=== PATIENT | male | born 1945 | race Caucasian/White ===

== ENCOUNTER 2016-09-25 13:14 | Emergency (ER) | payer BC ==
[2016-09-25 13:19] VITALS: RESP 18; O2SAT 99
--- NOTE | 2016-09-25 13:51 | ED PDOC ---
HPI: General Adult Time Seen by Provider: 09/25/16 13:33 Chief Complaint (Nursing): Weakness/Neurological Deficit Chief Complaint (Provider): generalized weakness History Per: Patient History/Exam Limitations: no limitations Onset/Duration Of Symptoms: Days (x 2) Additional Complaint(s): Kahlil Billingsley is a 70 year old male, with a previous medical history of diabetes, who presents to the ED with complaints of generalized weakness. Patient denies any chest pain, shortness of breath, headache, visual changes, focal weakness, paresthesias, fevers or chills. PMD: Dr. Back Past Medical History Reviewed: Historical Data, Nursing Documentation, Vital Signs Vital Signs: Last Vital Signs Temp 98 F 09/25/16 17:08 Pulse 64 09/25/16 17:08 Resp 18 09/25/16 17:08 BP 135/71 09/25/16 17:08 Pulse Ox 99 09/25/16 17:08 - Medical History PMH: Diabetes Denies: Atrial Fibrillation, CAD, Cardia Arrhythmia, CHF, HIV, HTN, Hypercholesterolemia, Mitral Valve Prolapse, Peripheral Edema - Surgical History Surgical History: Denies: Pacemaker - Family History Family History: States: Unknown Family Hx - Immunization History Hx Tetanus Toxoid Vaccination: No Hx Influenza Vaccination: No Hx Pneumococcal Vaccination: No - Home Medications Home Medications: Ambulatory Orders Medication Instructions Recorded Onglyza 5 mg PO DAILY 05/21/13 Ciprofloxacin HCl [Cipro] 500 mg PO BID #10 tab 05/19/14 Metronidazole [Flagyl] 500 mg PO Q8H #15 tab 05/19/14 Ondansetron HCl [Zofran] 4 mg PO Q8H PRN #0 ml 05/19/14 oxyCODONE/Acetaminophen [Percocet 1 ea PO Q4 PRN #0 tab 05/19/14 5/325 mg Tab] - Allergies Allergies/Adverse Reactions: Allergies Allergy/AdvReac Type Severity Reaction Status Date / Time Penicillins Allergy RASH Verified 09/25/16 13:44 Review of Systems ROS Statement: Except As Marked, All Systems Reviewed And Found Negative Constitutional: Positive for: Weakness (generalized ). Negative for: Fever, Chills Cardiovascular: Negative for: Chest Pain Respiratory: Negative for: Cough, Shortness of Breath Neurological: Negative for: Headache, Other (focal weakness) Physical Exam - Reviewed Nursing Documentation Reviewed: Yes Vital Signs Reviewed: Yes - Physical Exam Appears: Positive for: Well, Non-toxic, No Acute Distress Head Exam: Positive for: ATRAUMATIC, NORMAL INSPECTION, NORMOCEPHALIC Skin: Positive for: Normal Color, Warm, Dry Eye Exam: Positive for: EOMI, Normal appearance, PERRL ENT: Positive for: Normal ENT Inspection Neck: Positive for: Normal, Painless ROM Cardiovascular/Chest: Positive for: Regular Rate, Rhythm Respiratory: Positive for: CNT, Normal Breath Sounds Gastrointestinal/Abdominal: Positive for: Normal Exam, Bowel Sounds, Soft Back: Positive for: Normal Inspection Extremity: Positive for: Normal ROM Neurologic/Psych: Positive for: Alert, bread wrapper II-XII, Oriented, Gait (WNL). Negative for: Motor/Sensory Deficits, Aphasia, Facial Droop - Laboratory Results Result Diagrams: 09/25/16 14:20 09/25/16 14:20 - ECG Interpretation Of ECG: NSR @ 66, no ST-T changes. O2 Sat by Pulse Oximetry: 99 (RA) Pulse Ox Interpretation: Normal (ra) - CT Scan/US CT head Other Rad Studies (CT/US): Radiology Report Reviewed (No intracranial mass, hemorrhage or evidence of acute infarct.) - Progress Re-evaluation Time: 16:20 Condition: Improved - Physician Consult Information Physician Contacted: Flavio Back Outcome Of Conversation: Agrees with discharge home, follow-up next week in office. Medical Decision Making Medical Decision Making: Initial Impression: generalized weakness Initial Plan: * EKG * labs * troponin I * urine dipstick * urinalysis * PTT * PT * accu-check * reevaluation Scribe Attestation: Documented by Alexandra Chilel, acting as a scribe for Alexandra Tinsley MD. Provider Scribe Attestation: All medical record entries made by the Scribe were at my direction and personally dictated by me. I have reviewed the chart and agree that the record accurately reflects my personal performance of the history, physical exam, medical decision making, and the department course for this patient. I have also personally directed, reviewed, and agree with the discharge instructions and disposition. Disposition - Clinical Impression Clinical Impression: Episode of generalized weakness - Disposition Referrals: Flavio Back MD [Family Provider] - Disposition: Routine/Home Disposition Time: 16:29 Condition: IMPROVED Instructions: Weakness (ED) Forms: [facility] ED School/Work Excuse Print Language: SINHALA
[2016-09-25 14:29] LABS: BASO % 0.6 % (0.0-2.0); EOS # 0.6 K/uL (0.0-0.7); EOS % 7.5 % (0.0-4.0); HEMOGLOBIN 14.7 g/dL (12.0-18.0); LYMPH % 24.6 % (20.0-40.0); MEAN CELL VOLUME 89.8 fl (80.0-94.0); MEAN CORPUSCULAR HEMOGLOBIN 30.4 pg (27.0-31.0); MEAN CORPUSCULAR HGB CONC 33.8 g/dL (33.0-37.0); MEAN PLATELET VOLUME 9.4 fl (7.2-11.7); MONO # 0.6 K/uL (0.0-0.8); NEUT # 4.7 K/uL (1.8-7.0); NEUT % 59.3 % (50.0-75.0); RBC 4.83 Mil/uL (4.40-5.90); RED CELL DISTRIBUTION WIDTH 13.1 % (11.5-14.5)
[2016-09-25] MEDS: Sodium Chloride 0.9% 1,000 ML IV STA (14:33)
[2016-09-25 14:34] LABS: URINE BILIRUBIN NEGATIVE (NEGATIVE); URINE BLOOD NEGATIVE (NEGATIVE); URINE CLARITY CLEAR (Clear); URINE COLOR STRAW (YELLOW); URINE GLUCOSE (UA) >=500 mg/dL (Normal); URINE LEUKOCYTE ESTERASE NEG Leu/uL (Negative); URINE NITRATE NEGATIVE (NEGATIVE); URINE PROTEIN NEGATIVE (NEGATIVE); URINE UROBILINOGEN 0.2-1.0 mg/dL (0.2-1.0)
[2016-09-25 14:48] LABS: ALB/GLOB RATIO 1.2 (1.0-2.1); ALBUMIN 4.6 g/dL (3.5-5.0); ALT/SGPT 43 U/L (21-72); AST/SGOT 19 U/L (17-59); BLOOD UREA NITROGEN 25 mg/dl (9-20); CALCIUM 9.1 mg/dL (8.4-10.2); GFR AFRICAN-AMERICAN > 60; GFR NON-AFRICAN AMERICAN > 60
[2016-09-25 14:56] LABS: PARTIAL THROMBOPLASTIN TIME 34.1 Seconds (25.6-37.1); PROTHROMBIN TIME 11.1 Seconds (9.8-13.1)
--- NOTE | 2016-09-25 16:07 | CT ---
PROCEDURE: CT HEAD WITHOUT CONTRAST. HISTORY: Dizziness COMPARISON: None available. TECHNIQUE: Axial computed tomography images were obtained through the head/brain without intravenous contrast. Radiation dose: Total exam DLP = 839.63 mGy-cm. This CT exam was performed using one or more of the following dose reduction techniques: Automated exposure control, adjustment of the mA and/or kV according to patient size, and/or use of iterative reconstruction technique. FINDINGS: HEMORRHAGE: No intracranial hemorrhage. BRAIN: No mass effect or edema. Mild atrophy consistent with patient age. No evidence of acute infarct. VENTRICLES: Unremarkable. No hydrocephalus. CALVARIUM: Unremarkable. PARANASAL SINUSES: Unremarkable as visualized. No significant inflammatory changes. MASTOID AIR CELLS: Unremarkable as visualized. No inflammatory changes. OTHER FINDINGS: None. IMPRESSION: No intracranial mass, hemorrhage or evidence of acute infarct.
[2016-09-25 17:09] VITALS: BP 135/71; PULSE 64; TEMP 98
--- NOTE | 2016-09-26 07:34 | CARD ---
APPROVED REPORT EKG Measurement Heart [id number] [place] [id number] <Conclusion> Normal sinus rhythm Left axis deviation Abnormal ECG
== END 2016-09-25 17:18 | disposition home or self-care (01) ==
LOC: H.ER 13:14
DX: R53.1 Weakness (principal); E11.9 Type 2 diabetes mellitus without complications; Z88.0 Allergy status to penicillin
CPT/HCPCS: 70450; 80053; 81003; 82948; 84484; 85025; 85610; 85730; 93005; 96360; 96361; 99282; J7040

== ENCOUNTER 2017-05-02 09:16 | Emergency (ER) | payer BC ==
[2017-05-02 09:30] VITALS: O2SAT 96
[2017-05-02 09:31] VITALS: BMI 26.6
[2017-05-02] MEDS ORDERED: Sodium Chloride 0.9% 1,000 ML IV STA ×2 (10:07→11:18)
--- NOTE | 2017-05-02 10:08 | ED PDOC ---
HPI: CCC, URI, Sore Throat Time Seen by Provider: 05/02/17 10:06 Chief Complaint (Nursing): Flu-like Symptoms Chief Complaint (Provider): cough History Per: Patient Additional Complaint(s): 8-year-old female with history of diabetes presents to emergency department with cough, subjective fever and body aches for 3 days. Patient denies chest pain or shortness of breath. No associated vomiting. He has slight headache. No meds taken for symptomatically relief. PMD: Dr. Back Past Medical History Reviewed: Historical Data, Nursing Documentation, Vital Signs Vital Signs: Last Vital Signs Temp 98.8 F 05/02/17 13:24 Pulse 60 05/02/17 13:24 Resp 19 05/02/17 13:24 BP 144/65 05/02/17 13:24 Pulse Ox 96 05/02/17 13:24 - Medical History PMH: Diabetes - Surgical History Surgical History: Hernia Repair (x 2) - Family History Family History: States: No Known Family Hx - Living Arrangements Living Arrangements: With Family - Social History Current smoker - smoking cessation education provided: No Alcohol: None Drugs: Denies - Home Medications Home Medications: Ambulatory Orders Medication Instructions Recorded Onglyza 5 mg PO DAILY 05/21/13 Ciprofloxacin HCl [Cipro] 500 mg PO BID #10 tab 05/19/14 Metronidazole [Flagyl] 500 mg PO Q8H #15 tab 05/19/14 Ondansetron HCl [Zofran] 4 mg PO Q8H PRN #0 ml 05/19/14 oxyCODONE/Acetaminophen [Percocet 1 ea PO Q4 PRN #0 tab 05/19/14 5/325 mg Tab] Albuterol HFA [Ventolin HFA 90 1 puff IH ASDIR #1 unit 05/02/17 mcg/actuation (8 g)] Azithromycin [Zithromax] 250 mg PO DAILY #6 tab 05/02/17 Benzonatate 200 mg PO TID PRN #20 capsule 05/02/17 Oseltamivir Phosphate [Tamiflu] 75 mg PO BID #9 capsule 05/02/17 - Allergies Allergies/Adverse Reactions: Allergies Allergy/AdvReac Type Severity Reaction Status Date / Time Penicillins Allergy RASH Verified 09/25/16 13:44 Curb-65 Severity Score - CURB-65 Severity Score Confusion: No Bun >19mg/dl (>7mmol/L): Yes Respiratory Rate greater than/equal to 30: No Systolic BP <90 or Diastolic BP less than/equal 60mmHg: No Age >64: No Curb-65 Score: 1 Percentage 30-day mortality: 2.7% Review of Systems ROS Statement: Except As Marked, All Systems Reviewed And Found Negative Constitutional: Positive for: Fever (subjetive), Other (body aches). Negative for: Chills Cardiovascular: Negative for: Chest Pain Respiratory: Positive for: Cough Gastrointestinal: Negative for: Vomiting Physical Exam - Reviewed Nursing Documentation Reviewed: Yes Vital Signs Reviewed: Yes - Physical Exam Appears: Positive for: Well, Non-toxic, No Acute Distress Skin: Negative for: Rash Eye Exam: Positive for: Normal appearance ENT: Positive for: Normal ENT Inspection Cardiovascular/Chest: Positive for: Regular Rate, Rhythm Respiratory: Positive for: Normal Breath Sounds. Negative for: Crackles, Rales , Rhonchi, Wheezing, Respiratory Distress Neurologic/Psych: Positive for: Alert, Oriented - Laboratory Results Result Diagrams: 05/02/17 10:25 05/02/17 10:25 - ECG O2 Sat by Pulse Oximetry: 96 Pulse Ox Interpretation: Normal - Other Rad CXR X-Ray: Viewed By Me, Read By Radiologist X-Ray Interpretation: Atelectasis, no infiltrate Medical Decision Making Medical Decision Makin-year-old male with cough and body aches for 3 days Plan: CBC CMP EKG CXR VBG IVF PO tylenol Lactate is noted to be 2.7, patient is afebrile, no tachycardia noted, no white blood cell count. Case was d/w Dr. Tinsley ED attending, will given fluid bolus and re-check lactate. Tamiflu initial dose given in ED. Repeat lactate after fluid bolus was 1.0. Patient feels much better. Repeat vitals are within normal limits. Patient will be discharged with prescriptions for Tamiflu, Tessalon Perles, Ventolin and Zithromax. Advised fluids, rest and OTC NSAIDs for fever and bodyaches as needed. Patient was shocked to follow up with primary doctor in 1- 2 days. Patient also aware he can return to emergency room anytime if acutely worse Disposition - Clinical Impression Clinical Impression: Influenza-like symptoms - Patient ED Disposition Is Patient to be Admitted: No Counseled Patient/Family Regarding: Studies Performed, Diagnosis, Need For Followup, Rx Given - Disposition Referrals: Flavio Back MD [Family Provider] - Disposition: Routine/Home Disposition Time: 14:36 Condition: IMPROVED Additional Instructions: Take prescription medications as directed. Continue with [id number] Advil and Tylenol for fever and body aches. Rest and drink plenty of fluids. Follow- up with primary doctor in 2-3 days or return any time if acutely worse. Prescriptions: Albuterol HFA [Ventolin HFA 90 mcg/actuation (8 g)] 1 puff IH ASDIR #1 unit Azithromycin [Zithromax] 250 mg PO DAILY #6 tab Benzonatate 200 mg PO TID PRN #20 capsule PRN Reason: Cough Oseltamivir Phosphate [Tamiflu] 75 mg PO BID #9 capsule Instructions: Flu, Adult (DC), Bacterial Upper Respiratory Infection, Adult Forms: [facility] (Guinean) Results - Lab Results Lab Results: 05/02/17 05/02/17 05/02/17 13:58 10:25 10:25 WBC RBC Hgb Hct MCV MCH MCHC RDW Plt Count MPV Neut % (Auto) Lymph % (Auto) [place] % (Auto) Eos % (Auto) Baso % (Auto) Neut # (Auto) Lymph # (Auto) [place] # (Auto) Eos # (Auto) Baso # (Auto) pO2 52 40 VBG pH 7.36 7.37 VBG pCO2 40 41 VBG HCO3 22.5 23.1 VBG Total CO2 23.8 25.0 VBG O2 Sat (Calc) 91.6 H 82.1 H VBG Base Excess -2.7 L -1.5 L VBG Potassium 4.0 4.5 Sodium 133.0 133.0 135 Chloride 101.0 98.0 100 Glucose 197 H 343 H Lactate 1.0 2.7 H FiO2 21.0 21.0 Crit Value Called To [place] ca Crit Value Called By 23 Crit Value Read Back Y Blood Gas Notified Time 1030 Potassium 4.7 Carbon Dioxide 20 L Anion Gap 20 BUN 21 H Creatinine 1.0 Est GFR ( Amer) > 60 Est GFR (Non-Af Amer) > 60 Random Glucose 325 H Calcium 8.4 Total Bilirubin 0.4 AST 51 ALT 91 H D Alkaline Phosphatase 81 Total Protein 7.7 Albumin 4.1 Globulin 3.6 Albumin/Globulin Ratio 1.2 Venous Blood Potassium 4.0 4.5 05/02/17 10:25 WBC 5.0 RBC 4.80 Hgb 14.2 Hct 43.0 MCV 89.5 MCH 29.6 MCHC 33.1 RDW 13.3 Plt Count 159 MPV 9.6 Neut % (Auto) 70.7 Lymph % (Auto) 16.4 L [place] % (Auto) 11.4 H Eos % (Auto) 1.1 Baso % (Auto) 0.4 Neut # (Auto) 3.5 Lymph # (Auto) 0.8 L [place] # (Auto) 0.6 Eos # (Auto) 0.1 Baso # (Auto) 0.0 pO2 VBG pH VBG pCO2 VBG HCO3 VBG Total CO2 VBG O2 Sat (Calc) VBG Base Excess VBG Potassium Sodium Chloride Glucose Lactate FiO2 Crit Value Called To Crit Value Called By Crit Value Read Back Blood Gas Notified Time Potassium Carbon Dioxide Anion Gap BUN Creatinine Est GFR ( Amer) Est GFR (Non-Af Amer) Random Glucose Calcium Total Bilirubin AST ALT Alkaline Phosphatase Total Protein Albumin Globulin Albumin/Globulin Ratio Venous Blood Potassium
[2017-05-02 10:32] LABS: VENOUS BLOOD GAS BASE EXCESS -1.5 mmol/L (0.0-2.0); VENOUS BLOOD GAS PCO2 41 mmHg (40-60); VENOUS BLOOD GAS PO2 40 mm/Hg (30-55); VENOUS BLOOD PH 7.37 (7.32-7.43)
[2017-05-02 10:41] LABS: ALB/GLOB RATIO 1.2 (1.0-2.1); ALBUMIN 4.1 g/dL (3.5-5.0); ALT/SGPT 91 U/L (21-72); AST/SGOT 51 U/L (17-59); BASO % 0.4 % (0.0-2.0); BLOOD UREA NITROGEN 21 mg/dl (9-20); CALCIUM 8.4 mg/dL (8.4-10.2); EOS # 0.1 K/uL (0.0-0.7); EOS % 1.1 % (0.0-4.0); GFR AFRICAN-AMERICAN > 60; GFR NON-AFRICAN AMERICAN > 60; HEMOGLOBIN 14.2 g/dL (12.0-18.0); LYMPH # 0.8 K/uL (1.0-4.3); LYMPH % 16.4 % (20.0-40.0); MEAN CELL VOLUME 89.5 fl (80.0-94.0); MEAN CORPUSCULAR HEMOGLOBIN 29.6 pg (27.0-31.0); MEAN CORPUSCULAR HGB CONC 33.1 g/dL (33.0-37.0); MEAN PLATELET VOLUME 9.6 fl (7.2-11.7); MONO # 0.6 K/uL (0.0-0.8); MONO % 11.4 % (0.0-10.0); NEUT # 3.5 K/uL (1.8-7.0); NEUT % 70.7 % (50.0-75.0); NRBC % 0.1 % (0.0-0.0); RBC 4.8 Mil/uL (4.40-5.90); RED CELL DISTRIBUTION WIDTH 13.3 % (11.5-14.5)
--- NOTE | 2017-05-02 11:24 | RAD ---
HISTORY: cough COMPARISON: No prior TECHNIQUE: Chest PA and lateral FINDINGS: LUNGS: Suspect minimal linear bibasilar atelectasis PLEURA: No significant pleural effusion identified. No pneumothorax apparent. CARDIOVASCULAR: Normal. OSSEOUS STRUCTURES: Minor multilevel degenerative spondylosis of the thoracic spine. Mild degenerative of changes both shoulder girdles. VISUALIZED UPPER ABDOMEN: Normal. OTHER FINDINGS: None. IMPRESSION: Minimal linear bibasilar atelectasis
[2017-05-02 13:25] VITALS: BP 144/65; PULSE 60; RESP 19; TEMP 98.8
[2017-05-02 14:06] LABS: VENOUS BLOOD GAS BASE EXCESS -2.7 mmol/L (0.0-2.0); VENOUS BLOOD GAS PCO2 40 mmHg (40-60); VENOUS BLOOD GAS PO2 52 mm/Hg (30-55); VENOUS BLOOD PH 7.36 (7.32-7.43)
--- NOTE | 2017-05-03 19:17 | CARD ---
APPROVED REPORT EKG Measurement Heart [id number] <Conclusion> Normal sinus rhythm Left anterior fascicular block Anterior infarct, age undetermined-not diagnostic Abnormal ECG
== END 2017-05-02 14:55 | disposition home or self-care (01) ==
LOC: H.ER 09:16
DX: J11.1 Influenza due to unidentified influenza virus with other respiratory manifestations (principal); E11.9 Type 2 diabetes mellitus without complications; Z88.0 Allergy status to penicillin
CPT/HCPCS: 71046; 80053; 82803; 85025; 93005; 99284; J7040